=== PATIENT | male | born 1960 | race Caucasian/White ===

== ENCOUNTER → 2020-10-08 11:37 | Outpatient (CLI) | payer BC, SELFPAY ==
--- NOTE | ~2020-10-08 | XR_ITS ---
EXAMINATION: XR hand RT min 3V DATE: 10/08/2020 11:51 INDICATION: Paresthesias of skin with skin tightness and difficulty making a fist TECHNIQUE: Posteroanterior, oblique and lateral views of the right hand were obtained. COMPARISON: None. FINDINGS: Alignment is normal. No fracture. Minimal to mild polyarticular osteoarthritis with tiny marginal ost eophytes at and minimal joint space narrowing at the first carpometacarpal and multiple metacarpophal angeal and interphalangeal joints. Soft tissues are unremarkable. IMPRESSION: 1. Minimal to mild polyarticular osteoarthritis at the right hand. Reviewed, dictated and finalized at location A.
== END ==
PROVIDERS: PCP Family Medicine; Visit Provider Physician Assistant
DX: R20.2 Paresthesia of skin (principal)
CPT/HCPCS: 73130

== ENCOUNTER 2020-11-26 07:25 | Outpatient (CLI) | payer BC, SELFPAY ==
--- NOTE | 2020-12-09 15:23 | WPDSLEEPSTUD ---
Sleep Study Date of Study: 11/26/20 <Trupti Montelongo DO - Last Filed: 12/09/20 16:27> Ordering Provider: YANELIS Perez <Trupti Montelongo DO - Last Filed: 12/09/20 16:27> Interpreting Physician: Trupti Montelongo DO <Trupti Montelongo DO - Last Filed: 12/09/20 16:27> Sleep Study Type: Split Polysomnogram <Trupti Montelongo DO - Last Filed: 12/09/20 16:27> Height: 1.83 m <Trupti Montelongo DO - Last Filed: 12/09/20 16:27> Weight: 123.377 kg <Trupti Montelongo DO - Last Filed: 12/09/20 16:27> Body Mass Index: 36.8 <Trupti Montelongo DO - Last Filed: 12/09/20 16:27> Neck Circumference (inches): 18.5 <Trupti Montelongo DO - Last Filed: 12/09/20 16:27> Zion: 13 <Trupti Montelongo DO - Last Filed: 12/09/20 16:27> Reason for Sleep Study Patient has snoring and daytime somnolence. <Trupti Montelongo DO - Last Filed: 12/09/20 16:27> Sleep History The patient is a 60-year-old male with hypertension, hyperlipidemia, anxiety, depression and history of MATILDA that had a split study ordered by his primary care due to snoring and daytime somnolence. The patient was diagnosed with MATILDA in the past and saw an ENT physician who performed surgery. the patient states that he rarely awakens from sleep short of breath. He rarely awakens at night with heartburn, belching or cough. He constantly snores loudly enough that others complain. He frequently has trouble sleeping when he has a cold. He rarely wakes up gasping for air throughout the night. He constantly has breathing problems at night observed by others. He rarely notices any heart palpitations. He often falls asleep during the day. He rarely falls asleep while driving. He often has trouble at school or work due to sleepiness. He often experiences vivid dreamlike scenes upon awakening or falling asleep. He denies sleep paralysis and cataplexy. He denies having nightmares. He often has thoughts racing through his mind. He rarely feels sad or depressed but often feels anxious. He denies noticing parts of his body jerk. He rarely kicks throughout the night. He denies experiencing crawling and aching feelings in his legs. He rarely has leg pain during the night. He often grinds his teeth at night but rarely has morning jaw pain. He is often bothered by pain during the day but is rarely awakened by pain during the night. He rarely wakes up feeling stiff in the morning with sore and achy muscles. He goes to bed at 11:00 p.m. on weekdays and weekends. It takes him an hour to fall asleep. He wakes up 2 times throughout the night. it takes him 10 minutes to fall back asleep. He wakes up at 6:30 a.m. on weekdays and 7:00 a.m. on weekends arm he does not stay in bed long after waking up in the morning. He typically gets 7 hours of sleep per night. He currently lives alone. He denies drinking any caffeinated beverages 2 hours prior to bedtime. He does not do any physical exercise before bedtime. He will sometimes read and watch television before falling asleep. He does take naps during the afternoon or evening but they are not refreshing. The patient quit smoking cigarettes 9 months ago. He does consume 3 caffeinated beverages per day and 4-6 alcoholic beverages per week. He denies any recreational drug use. <Trupti Montelongo DO - Last Filed: 12/09/20 16:27> FORMERLY [facility] Past Medical History Medical History: Medical History Anxiety Depression Erectile dysfunction HLD (hyperlipidemia) HTN (hypertension), benign IFG (impaired fasting glucose) Low testosterone MATILDA (obstructive sleep apnea) Smoking <Trupti Montelongo DO - Last Filed: 12/09/20 16:27> Surgical History Surgical History: Surgical History History of uvulectomy <Trupti Montelongo DO - Last Filed: 12/09/20 16:27> Family History Family Hist
[2020-12-09 15:39] VITALS: BMI 36.8
== END 2020-11-27 06:49 | disposition home or self-care (01) ==
LOC: ANHCSM 07:29
PROVIDERS: PCP Family Medicine; Visit Provider Nurse Practitioner Family
DX: G47.33 Obstructive sleep apnea (adult) (pediatric) (principal); R06.83 Snoring
CPT/HCPCS: 95811

== ENCOUNTER 2021-01-14 09:36 | Outpatient (CLI) | payer BC, SELFPAY ==
--- NOTE | 2021-01-14 11:00 | NEURO_ITS ---
Impression: # Complains of numbness of hands. # Bilateral Carpal Tunnel Syndrome, right more than left. # No ulnar neuropathy. # Normal needle/EMG exam. Nerve Conduction Studies Anti Sensory Summary Table Stim Site NR Peak (ms) P-T Amp (?V) Site1 Site2 Delta-P (ms) Dist (cm) Brian (m/s) Left Median Anti Sensory (2-3nd Digit) Wrist 3.6 12.4 Wrist 2-3nd Digit 3.6 14.0 39 Wrist 3.7 20.3 Wrist 2-3nd Digit 3.6 14.0 39 Right Median Anti Sensory (2-3nd Digit) Wrist 3.7 12.6 Wrist 2-3nd Digit 3.7 14.0 38 Wrist 3.8 23.7 Wrist 2-3nd Digit 3.7 14.0 38 Left Radial Anti Sensory (Base 1st Digit) Wrist 1.8 15.9 Wrist Base 1st Digit 1.8 0.0 Right Radial Anti Sensory (Base 1st Digit) Wrist 2.0 12.3 Wrist Base 1st Digit 2.0 0.0 Left Ulnar Anti Sensory (5th Digit) Wrist 2.3 23.2 Wrist 5th Digit 2.3 14.0 61 Right Ulnar Anti Sensory (5th Digit) Wrist 2.3 15.1 Wrist 5th Digit 2.3 14.0 61 Motor Summary Table Stim Site NR Onset (ms) O-P Amp (mV) Site1 Site2 Delta-0 (ms) Dist (cm) Brian (m/s) Left Median Motor (Abd Poll Brev) Wrist 4.1 2.9 Elbow Wrist 4.8 28.0 58 Elbow 8.9 2.5 Right Median Motor (Abd Poll Brev) Wrist 4.8 3.7 Elbow Wrist 5.0 29.0 58 Elbow 9.8 3.3 Left Ulnar Motor (Abd Dig Minimi) Wrist 2.8 4.6 A Elbow Wrist 5.0 29.0 58 A Elbow 7.8 3.7 Right Ulnar Motor (Abd Dig Minimi) Wrist 2.5 4.3 A Elbow Wrist 5.0 29.0 58 A Elbow 7.5 3.6 F Wave Studies NR F-Lat (ms) L-R F-Lat (ms) Left Median (Mrkrs) (Abd Poll Brev) 30.08 2.15 Right Median (Mrkrs) (Abd Poll Brev) 32.22 2.15 Left Ulnar (Mrkrs) (Abd Dig Min) 29.20 0.40 Right Ulnar (Mrkrs) (Abd Dig Min) 28.80 0.40 EMG Side Muscle Nerve Root Ins Act Fibs Amp Dur Recrt Comment Right 1stDorInt Ulnar C8-T1 Nml Nml Nml Nml Nml Right Ext Indicis Radial (Post Int) C7-8 Nml Nml Nml Nml Nml Right Ext Digitorum Radial (Post Int) C7-8 Nml Nml Nml Nml Nml Right BrachioRad Radial C5-6 Nml Nml Nml Nml Nml Right PronatorTeres Median C6-7 Nml Nml Nml Nml Nml Right Abd Poll Brev Median C8-T1 Nml Nml Nml Nml Nml Left 1stDorInt Ulnar C8-T1 Nml Nml Nml Nml Nml Left Ext Indicis Radial (Post Int) C7-8 Nml Nml Nml Nml Nml Left Ext Digitorum Radial (Post Int) C7-8 Nml Nml Nml Nml Nml Left BrachioRad Radial C5-6 Nml Nml Nml Nml Nml Left PronatorTeres Median C6-7 Nml Nml Nml Nml Nml Left Abd Poll Brev Median C8-T1 Nml Nml Nml Nml Nml Right ABD Dig Min Ulnar C8-T1 Nml Nml Nml Nml Nml MTDD
== END 2021-01-14 09:37 | disposition home or self-care (01) ==
PROVIDERS: PCP Family Medicine; Visit Provider Nurse Practitioner Family
DX: R20.0 Anesthesia of skin (principal); R20.2 Paresthesia of skin; G56.03 Carpal tunnel syndrome, bilateral upper limbs
CPT/HCPCS: 95886; 95911

== ENCOUNTER 2021-03-27 00:44 | Day surgery (SDC) | payer BC, SELFPAY ==
[2021-03-20 14:40] VITALS: BMI 34.8
--- NOTE | 2021-03-20 14:48 | PC.NURSE ---
Report to the Outpatient Waiting Room, entrance under the green pavilion located off [facility], at time 0930 on date 03/27/21. OR Time: 1130. - You will be asked a series of questions to screen for COVID 19 for your protection. - A mask is required within the hospital. - No visitors are allowed at this time. Preoperative COVID Testing Requirements: No COVID Test needed if: (proof is required; if not received patient will have Rapid Test prior to entry) - Patient has received COVID Vaccine at least 14 days prior to procedure date or - Patient has positive COVID test result within last 90 days of surgery date. COVID Test needed if above criteria is not met Patients may have clear liquids (water, carbonated beverages, clear teas, apple juice) until 3 hours prior to surgery with a maximum of 20 ounces. - No food from midnight until time of surgery Take the following medications with a SIP of water the morning of surgery: SERTRALINE Medications to discontinue per physician: VITAMINS Date to take last dose: 03/23/21 Please no make-up, nail turkish, hairspray, perfume, deodorant, or body powder the day of surgery. No jewelry (including any body piercings) or valuables the day of surgery, leave them at home. Please take a shower or bath the night before, or the morning of, surgery with an antibacterial soap. Wear comfortable, loose fitting clothing. - Jewelry must be removed prior to entering the operating room. Rings and piercings that are not removed may be cut off. - The hospital will not accept responsibility for valuables. - Please leave all valuables, including medications, at home the day of surgery. If you are going home after surgery, a licensed services delivery driver must drive you home. - NO public transportation without another adult. - We recommend that an adult stay with you for 24 hours following discharge. - We also recommend that you do not drive, make important decision, drink alcoholic beverages, or take any drugs that were not prescribed by your health care provider for at least 24 hours after your discharge time. Follow any additional instructions given to you from your surgeon. Telephone instructions given to TRAN CARDOZA and asked if any additional questions and then verbalized understanding. Patient advised to call surgeon office or pre surgery nurse liaison [phone] if any additional questions.
[2021-03-27 10:39] VITALS: BP 168/85; PULSE 89; RESP 20; TEMP 36.5; O2SAT 96
[2021-03-27] MEDS: LACTATED RINGERS 1,000 ML 30 ML IV CONT ×3 (10:50→14:14)
--- NOTE | 2021-03-27 11:02 | P.PNAN_ITS ---
Anes - Initial Pre Proc Eval Procedure: Operation Date: 03/27/21 13:30 Proposed Procedures p Bilateral Open Carpal Tunnel Release - Tesfaye Grimes MD s Bilateral Ring Finger Trigger Finger Release - Tesfaye Grimes MD Date/Time: 03/27/21 11:02 Surgeon: Tesfaye Grimes MD Pre Op Diagnosis: bilateral CTS, bilateral ring finger trigger finge Patient Data Age: 60 Gender: M Height: 1.83 m Weight: 116.57 kg Allergies Allergy/AdvReac Type Severity Reaction Status Date / Time No Known Allergies Allergy Unverified 03/27/21 10:37 Home Medications Medication Instructions Recorded Confirmed Type sertraline 50 mg tablet 50 mg PO DAILY #30 tablet 07/15/20 03/27/21 Rx atorvastatin 40 mg tablet 40 mg PO DAILY #90 tablet 10/16/20 03/27/21 Rx hydrochlorothiazide 25 mg tablet 25 mg PO DAILY #90 tablet 10/16/20 03/27/21 Rx lisinopril 40 mg tablet 40 mg PO DAILY #90 tablet 01/10/21 03/27/21 Rx sildenafil 50 mg tablet 50 mg PO DAILY PRN #30 tablet 03/18/21 03/20/21 Rx multivitamin 1 tablet PO DAILY 03/20/21 03/27/21 History Patient hx anesthesia problems: none Family hx anesthesia problems: none Results Review: All pre-operative results and documents have been reviewed as part of the pre-operative evaluation. [facility] Past Medical History Medical History Anxiety Depression Erectile dysfunction HLD (hyperlipidemia) HTN (hypertension), benign IFG (impaired fasting glucose) Low testosterone MATILDA (obstructive sleep apnea) Smoking Surgical History Surgical History History of uvulectomy Family History Family History Mother Heart disease Father Hypertension Sibling Hypertension Social History Social History Smoking packs per day: 0.5 Smoking cigarettes per day: 10.0 Years smoked: 25 Smoking pack-years: 12.50 Smoking status: Former smoker Tobacco type: cigarettes Second hand tobacco smoke exposure: No Smoking end date: 04/01/20 Alcohol intake: current Drinks per week: 4 Substance use: never Substance use type: does not use Living arrangements: alone Gender identity (if verbalized by the patient): Male Sexual Orientation (if Verbalized by the Patient): Straight or Heterosexual Spiritual care concerns: No Anes - Eval Final PreProcedure Day of Procedure 03/27/21 11:02 Patient weight: obese Heart: regular rate and rhythm Lungs: clear to auscultation Airway: Mallampati scale class II Neurological: alert and oriented Last oral intake: >/= 8 hours ASA classification: III Emergent: no Anesthetic plan: proceed Anesthesia type and monitoring: general GIVS and standard monitoring Results Review: All pre-operative results and documents have been reviewed as part of the pre-operative evaluation. Informed Consent: The patient's anesthetic plan and its attendant risks and benefits were discussed with the patient/family/POA. Questions were solicited and answers provided to the satisfaction of the patient/family/POA.
--- NOTE | 2021-03-27 12:42 | WPDHPUPDATE1 ---
History and Physical Update Update Date/Time: 03/27/21 12:42 History and Physical has been reviewed, including an updated exam of the patient. There are NO changes in the patient's condition. Risks, benefits, and alternatives have been discussed and questions answered. Patient agrees to proceed with procedure.
[2021-03-27] MEDS: KETOROLAC 30 MG/ML VIAL (*BKC) IV PUSH (13:02)
[2021-03-27] MEDS: LIDO 1%/EPINEPHRINE/PF 1:200,000 30 ML VIAL INFILTRATE (13:02)
[2021-03-27 14:00] VITALS: BP 116/56; PULSE 69; RESP 16; O2SAT 96
--- NOTE | 2021-03-27 14:01 | W.PM.PROC2 ---
Procedure Note - Detailed Date of Procedure 03/27/21 Pre-op Diagnosis bilateral CTS, bilateral ring finger trigger finge Post-op Diagnosis same Procedure Performed Bilateral open carpal tunnel release and bilateral ring finger trigger release Surgeon Tesfaye Grimes MD Anesthesia MAC Description of Procedure The 2 carpal tunnels and the 2 ring trigger fingers were marked in the holding area. The patient taken to the operating room and placed supine on the operating table. A time-out was held and confirmed. He was given IV sedation. The extremity was prepped and draped in usual fashion. The surgical sites were infiltrated with 1% lidocaine with epinephrine prior to prepping in anticipation of not using a tourniquet on the left side due to the location of the IV on the left in the forearm. The right side was done 1st with inflation of the tourniquet to 250 mmHg. The incision was made in the palm and dissected through the subcutaneous tissue. The palmar fascia and transverse retinaculum were incised with a 15 blade. The canal was opened under 3 point retraction and the ligament was divided distally and proximally to completely release it. Attention was turned to the ring finger were an incision near the distal palmar crease was made and the flexor tendon sheath was exposed. The A1 dayanara was identified and lysed with scissors and knife to completely release. The tendon bundle was pulled up out of the wound on Littler scissor tips which appeared to confirm that entire A1 dayanara was lysed and there was no significant thickening of the flexor tendon. Both wounds on the right hand were closed with interrupted 5 0 nylon suture. The usual bandage was applied and the tourniquet was released. On the right side folded towels were placed under the hand. The tourniquet was on the forearm but not utilized. The incision was made in the palm for the carpal tunnel release. Dissection through the subcutaneous tissue revealed the palmar aponeurosis. This and the carpal ligament were incised with a 15. Blade. Under 3 point retraction the ligament was divided distally and proximally to completely release it. Attention was then turned to the ring finger where the transverse incision near the distal palmar crease was made to expose the flexor tendon sheath. The A1 dayanara was identified and lysed with scissors and knife to completely release it. The skin was closed with interrupted 5-0 nylon at both wounds. The usual bandages were applied. The patient was discharged from operating room stable condition. He is being discharged with instructions in wound care and follow-up and a prescription for hydrocodone . Estimated Blood Loss 1 Drains No Packing No Pathology none sent Complications No immediate complications Condition stable Disposition same day
[2021-03-27 14:20] VITALS: BP 142/87; PULSE 75; RESP 16
== END 2021-03-27 15:08 | disposition home or self-care (01) ==
PROVIDERS: PCP Family Medicine; Visit Provider Plastic Surgery
PROC: (CPT 64721; principal; 2021-03-27 13:30)
PROC: (CPT 26055; 2021-03-27 13:30)
DX: G56.03 Carpal tunnel syndrome, bilateral upper limbs (principal); M65.342 Trigger finger, left ring finger; M65.341 Trigger finger, right ring finger; I10 Essential (primary) hypertension; E78.5 Hyperlipidemia, unspecified; G47.33 Obstructive sleep apnea (adult) (pediatric); Z87.891 Personal history of nicotine dependence; F41.8 Other specified anxiety disorders; E66.9 Obesity, unspecified; Z68.35 Body mass index [BMI] 35.0-35.9, adult
CPT/HCPCS: 64721; 26055 ×2; A9270; J0131; J1100; J1885; J2250; J2270; J2405; J2704; J7120

== ENCOUNTER 2023-12-01 15:06 | Outpatient (CLI) | payer BC, SELFPAY ==
--- NOTE | ~2023-12-01 | CT_ITS ---
EXAMINATION:CT lung screening DATE: 12/01/2023 15:40 INDICATION: Personal history of nicotine dependence. Smoker who quit 3 years ago with 35 pack year hi story. TECHNIQUE: Computed tomography (CT) of the chest was performed without intravenous contrast. Automate d exposure control and iterative reconstruction technique were employed. The dose-length product (DLP ) was 339.12 mGy-cm. COMPARISON: None. FINDINGS: The lungs demonstrate mild atelectasis. Calcified right lung nodules and calcified right hi lar lymph nodes are consistent with old granulomatous disease. No pleural effusion. The heart size is normal. There are coronary artery calcifications. No pericardial effusion. Calcifications in the spl een are consistent with old granulomatous disease. There are 2 stones in left kidney measuring up to 6 mm. There are bridging endplate osteophytes at multiple levels in the spine, consistent with diffus e idiopathic skeletal hyperostosis (DISH). IMPRESSION: 1. Lung-RADS category 1: Negative. Continue annual screening with noncontrast low-dose chest CT in 12 months. Reviewed, dictated and finalized at location A. IMPRESSION: 1. Lung-RADS category 1: Negative. Continue annual screening with noncontrast l ow-dose chest CT in 12 months.
== END 2023-12-01 15:07 | disposition home or self-care (01) ==
PROVIDERS: PCP Family Medicine; Visit Provider Physician Assistant Medical
DX: Z12.2 Encounter for screening for malignant neoplasm of respiratory organs (principal); Z79.891 Long term (current) use of opiate analgesic
CPT/HCPCS: 71271